=== PATIENT | female | born 1955 | race Caucasian/White ===

== ENCOUNTER → 2017-01-14 | Outpatient (CLI) | payer OTHER ==
[~2017-01-14] MED LIST: BUPIVACAINE MPF 0.25% 10 ML VIAL. ONE; IOHEXOL 300 MG/ML 50 ML VIAL. ONE; LIDOCAINE 1% PF 30 ML VIAL. ONE; methylPREDNISolone ACETATE 80 MG/ML VIAL. ONE
== END | disposition home or self-care (01) ==
LOC: SURG 11:58
PROVIDERS: ATTEND Anesthesiology Pain Medicine
DX: M16.11 Unilateral primary osteoarthritis, right hip (principal); E07.9 Disorder of thyroid, unspecified
CPT/HCPCS: 20610; 77002; J1040; J2001; J3490; Q9967

== ENCOUNTER → 2019-08-10 | Outpatient (CLI) | payer OTHER ==
[~2019-08-10] MED LIST changes: +ASPI81TA59 PO; -BUPIVACAINE MPF 0.25% 10 ML VIAL. ONE; +CALC500T54 PO; +FLUO40CA9 PO; +HYOS0.3716 PO; -IOHEXOL 300 MG/ML 50 ML VIAL. ONE; +LEVO50TA5 PO; -LIDOCAINE 1% PF 30 ML VIAL. ONE; +SIMV40TA18 PO; -methylPREDNISolone ACETATE 80 MG/ML VIAL. ONE
== END | disposition home or self-care (01) ==
LOC: LAB 08:05
PROVIDERS: ATTEND Registered Nurse
DX: Z11.59 Encounter for screening for other viral diseases (principal)
CPT/HCPCS: C9803; U0003; 87299

== ENCOUNTER → 2019-08-14 | Day surgery (SDC) | payer OTHER ==
[~2019-08-14] MED LIST changes: +IV RINGERS SOLUTION,LACTATED 1,000 ML IV SCH; +ONDANSETRON PF 4 MG/2 ML VIAL. IV PRN; +PROPOFOL 10,000 MCG/ML (20ML) VIAL IV ONE
[2019-08-14 09:59] VITALS: BP 118/72
== END ==
LOC: SURG 07:36
PROVIDERS: ATTEND Emergency Medicine
DX: Z12.11 Encounter for screening for malignant neoplasm of colon (principal); K64.8 Other hemorrhoids; K58.9 Irritable bowel syndrome, unspecified; E78.00 Pure hypercholesterolemia, unspecified; F32.9 Major depressive disorder, single episode, unspecified; K21.9 Gastro-esophageal reflux disease without esophagitis; Z79.899 Other long term (current) drug therapy; Z96.649 Presence of unspecified artificial hip joint; Z98.890 Other specified postprocedural states
CPT/HCPCS: 45378; J2704; J7120